=== PATIENT | female | born 1990 | race American Indian/Alaskan Native ===

== ENCOUNTER 2017-03-02 01:55 | Emergency (ER) | payer SELFPAY ==
[2017-03-02 02:02] VITALS: BP 111/70
[2017-03-02] MEDS ORDERED: NORCO 5/325 PO ONE (04:09)
--- NOTE | 2017-03-02 04:18 | Emergency Department Report ---
ED Back Pain/Injury HPI - General Chief Complaint: Back Pain/Injury Stated Complaint: BACK AND NECK PN Time Seen by Provider: 03/02/17 03:51 Source: patient Limitations: No Limitations - History of Present Illness Initial Comments: 26-year-old female past medical history herniated disks, sciatica presents with acute on chronic lower back pain. States this episode has been occurring for approximately 3-4 days. Denies any dysuria or increased urinary frequency no fever or chills. Patient states she is having intermittent lower back pain radiating down left leg. Denies any saddle paresthesias denies any bladder or bowel incontinence. Patient is ambulatory without assistance. States that this pain is consistent with her prior episodes of lower back pain for which she has seen orthopedics and obtained corticosteroid shots to the lower back. Denies any falls or direct trauma to the lower back. Denies any IV drug use. Patient is awake alert and oriented 3 visibly ambulatory without assistance nontoxic-appearing MD Complaint: back pain Onset/Timin -: days(s) Similar Symptoms Previously: Yes Place: home Radiation: buttocks, left leg Severity: moderate Severity scale (0 -10): 6 Quality: sharp, aching Consistency: intermittent Improves With: none Associated Symptoms: denies other symptoms - Related Data Previous Rx's Medication Instructions Recorded Last Taken Type Methocarbamol [Robaxin TAB] 750 mg PO Q8H PRN #12 tablet 03/02/17 Unknown Rx Naproxen [Naprosyn TAB] 500 mg PO BID PRN #25 tablet 03/02/17 Unknown Rx Allergies Allergy/AdvReac Type Severity Reaction Status Date / Time cyclobenzaprine HCl Allergy Itching Verified 03/02/17 02:02 [From Flexeril] ED Review of Systems ROS: Stated complaint: BACK AND NECK PN Other details as noted in HPI Constitutional: denies: chills, fever Eyes: denies: eye pain, eye discharge, vision change ENT: denies: ear pain, throat pain Respiratory: denies: cough, shortness of breath, wheezing Cardiovascular: denies: chest pain, palpitations Endocrine: no symptoms reported Gastrointestinal: denies: abdominal pain, nausea, diarrhea Genitourinary: denies: urgency, dysuria, discharge Musculoskeletal: as per HPI, back pain (chronic lower back pain and sciatica). denies: joint swelling, arthralgia Skin: denies: rash, lesions Neurological: denies: headache, weakness, paresthesias Psychiatric: denies: anxiety, depression Hematological/Lymphatic: denies: easy bleeding, easy bruising ED Past Medical Hx - Past Medical History Previous Medical History?: Yes Additional medical history: herniated disc, pinched nerves in back - Surgical History Past Surgical History?: Yes Hx Breast Surgery: Yes (brest reduction) - Social History Smoking Status: Current Every Day Smoker Substance Use Type: Alcohol - Medications Home Medications: Home Medications Medication Instructions Recorded Confirmed Last Taken Type Methocarbamol [Robaxin TAB] 750 mg PO Q8H PRN #12 tablet 03/02/17 Unknown Rx Naproxen [Naprosyn TAB] 500 mg PO BID PRN #25 tablet 03/02/17 Unknown Rx ED Physical Exam - General Limitations: No Limitations General appearance: alert, in no apparent distress - Head Head exam: Present: atraumatic, normocephalic - Eye Eye exam: Present: normal appearance, PERRL, EOMI - ENT ENT exam: Present: mucous membranes moist - Neck Neck exam: Present: normal inspection - Respiratory Respiratory exam: Present: normal lung sounds bilaterally. Absent: respiratory distress - Cardiovascular Cardiovascular Exam: Present: regular rate, normal rhythm. Absent: systolic murmur, diastolic murmur, rubs, gallop - GI/Abdominal GI/Abdominal exam: Present: soft, normal bowel sounds - Rectal Rectal exam: Present: normal rectal tone (patient has normal rectal tone) - Extremities Exam Extremities exam: Present: normal inspection, full ROM - Back Exam Back exam: Present: normal inspection - Neurological Exam Neurological exam: Present: alert, oriented X3, CN II-XII intact, normal gait - Expanded Neurological Exam Expanded Patient oriented to: Present: person, place, time Motor strength exam: RUE: 5, LUE: 5, RLE: 5, LLE: 5 DTR: knee (R): 3+, knee (L): 3+, ankle (R): 3+, ankle (L): 3+ Best Eye Response (Adrian): (4) open spontaneously Best Motor Response (Rylan): (6) obeys commands Best Verbal Response (Rylan): (5) oriented Rylan Total: 15 - Psychiatric Psychiatric exam: Present: normal affect, normal mood - Skin Skin exam: Present: warm, dry, intact, normal color. Absent: rash ED Course Vital Signs 03/02/17 02:01 Temperature 98.4 F Pulse Rate 74 Respiratory 18 Rate Blood Pressure 111/70 [Right] O2 Sat by Pulse 100 Oximetry ED Medical Decision Making - Medical Decision Making a/p: Acute on chronic lower back pain, sciatica, piriformis syndrome 1- will provide symptomatic relief with trial of NSAIDS, short course of naproxen, short course of Robaxin when necessary for muscle spasms 2- will refer patient to spine surgery and primary care. No clinical signs of cauda equina or cord compression on clinical exam or history. Rectal tone intact on clinical exam, strength 5 out of 5 both lower extremities, distal knee jerk reflexes intact bilaterally Pain is atraumatic, no neurovascular deficits on PE, no saddle paraesthesias, no bladder overflow, no bowel incontience. Pt denies any fever, chill, dysruia or IV drug use. Pain likely from chronic degenerative spinal disease. 3- patient is ambulatory without assistance Critical care attestation.: If time is entered above; I have spent that time in minutes in the direct care of this critically ill patient, excluding procedure time. ED Disposition Clinical Impression: Sciatica Qualifiers: Laterality: left Qualified Code(s): M54.32 - Sciatica, left side Chronic lower back pain Qualifiers: Back pain laterality: left Sciatica presence: with sciatica Sciatica laterality : sciatica of left side Qualified Code(s): M54.42 - Lumbago with sciatica, left side Disposition: TO HOME OR SELFCARE Is pt being admited?: No Does the pt Need Aspirin: No Condition: Stable Instructions: Sciatica (ED), Lumbar Radiculopathy (ED), Piriformis Syndrome (ED ) Prescriptions: Methocarbamol [Robaxin TAB] 750 mg PO Q8H PRN #12 tablet PRN Reason: Muscle Spasm Naproxen [Naprosyn TAB] 500 mg PO BID PRN #25 tablet PRN Reason: Pain Referrals: BIJU HOYT MD [Staff Physician] - 3-5 Days [facility] [Provider Group] - 3-5 Days Forms: Accompanied Note, Work/School Release Form(ED) Time of Disposition: 04:18
== END 2017-03-02 04:28 | disposition home or self-care (01) ==
LOC: ED 01:55
DX: M54.42 Lumbago with sciatica, left side (principal); F17.200 Nicotine dependence, unspecified, uncomplicated; Z88.8 Allergy status to other drugs, medicaments and biological substances
CPT/HCPCS: 99282